=== PATIENT | male | born 1975 | race Caucasian/White ===

== ENCOUNTER 2024-01-19 16:49 | Emergency (ER) | payer OTHER ==
--- NOTE | 2024-01-19 17:07 | ED ---
Fall HPI - General Source: patient, RN notes reviewed <Yeimy Sterling - Last Filed: 01/19/24 17:06> - General Source: patient, RN notes reviewed - History of Present Illness MD Complaint: fall -: minutes(s) Fall From: standing When Fall Occurred: 1 hour [employer] Fall Witnessed: no Place Fall Occurred: home Loss of Consciousness: none Prolonged Down Time?: no Symptoms Prior to Fall: none Location - Extremities: Right: Knee Severity scale (1-10): 10 Quality: stabbing Context: tripped/slipped Associated Symptoms: denies <Anson Hankins - Last Filed: 01/25/24 05:33> - General Stated Complaint: R leg injury Time Seen by Provider: 01/19/24 17:05 - History of Present Illness Initial Comments: Quick Note- this is a 48-year-old male presents emergency department complaint of a fall. Patient states he was in a cooler, slipped on fell injuring his right knee and hip. Patient denies hitting his head or loss of consciousness at time of fall. Denies blood thinner use. (Yeimy Sterling) This is a 48-year-old male with a significant fall in a cooler tripping on a patch of ice allegedly, patient has severe right knee pain (Anson Hankins) - Related Data Allergies Allergy/AdvReac Type Severity Reaction Status Date / Time No Known Allergies Allergy Verified 01/19/24 17:15 Review of Systems ROS Other: All systems not noted in ROS Statement are negative. <Yeimy Sterling - Last Filed: 01/19/24 17:06> ROS Other: All systems not noted in ROS Statement are negative. <Anson Hankins - Last Filed: 01/25/24 05:33> ROS Statement: Those systems with pertinent positive or pertinent negative responses have been documented in the HPI. General Exam <Yeimy Sterling - Last Filed: 01/19/24 17:06> General appearance: alert, in no apparent distress Head exam: Present: atraumatic, normocephalic, normal inspection Eye exam: Present: normal appearance, PERRL, EOMI. Absent: scleral icterus, conjunctival injection, periorbital swelling ENT exam: Present: normal exam, mucous membranes moist Neck exam: Present: normal inspection. Absent: tenderness, meningismus, lymphadenopathy Respiratory exam: Present: normal lung sounds bilaterally. Absent: respiratory distress, wheezes, rales, rhonchi, stridor Cardiovascular Exam: Present: regular rate, normal rhythm, normal heart sounds. Absent: systolic murmur, diastolic murmur, rubs, gallop, clicks GI/Abdominal exam: Present: soft, normal bowel sounds. Absent: distended, tenderness, guarding, rebound, rigid Extremities exam: Present: normal inspection, full ROM, normal capillary refill. Absent: tenderness, pedal edema, joint swelling, calf tenderness Back exam: Present: normal inspection Neurological exam: Present: alert, oriented X3, CN II-XII intact Psychiatric exam: Present: normal affect, normal mood Skin exam: Present: warm, dry, intact, normal color. Absent: rash <Anson Hankins - Last Filed: 01/25/24 05:33> - General Exam Comments Initial Comments: Visual Physical Exam Vital signs reviewed General: Well-appearing, nontoxic, no acute distress. Head: Normocephalic, atraumatic Eyes: PERRLA, EOMI ENT: Airway patent Chest: Nonlabored breathing Skin: No visual rash, normal skin tone Neuro: Alert and oriented 3 Musculoskeletal: No gross abnormalities (Stieler,Yeimy) Course <Anson Hankins - Last Filed: 01/25/24 05:33> Vital Signs 01/19/24 01/19/24 01/19/24 17:10 22:19 23:00 Temperature 98.0 F 97.9 F 98.2 F Pulse Rate 18 L 79 81 Respiratory 18 18 18 Rate Blood Pressure 121/85 124/82 140/84 O2 Sat by Pulse 98 98 98 Oximetry - Reevaluation(s) Reevaluation #1: 01/19/24 22:04 Medical records reviewed (Anson Hankins) Reevaluation #2: 01/19/24 22:04 Patient has severely difficult to control pain here in the ER (Surya Hankins) Reevaluation #3: 01/19/24 22:04 Patient is informed of results and questions answered (Anson Hankins) Reevaluation #4: Was pt. sent in by a medical professional or institution (KRISTIAN Owusu, CONVENTION WORKER, urgent care, hospital, or senior care...) When possible be specific @ -no Did you speak to anyone other than the patient for history (EMS, parent, family, police, friend...)? What history was obtained from this source @ -no Did you review nursing and triage notes (agree or disagree)? Why? @ -agree Are old charts reviewed (outside hosp., previous admission, EMS record, old EKG, old radiological studies, urgent care reports/EKG's, senior care records)? Report findings @ -yes Differential Diagnosis (chest pain, altered mental status, abdominal pain women, abdominal pain men, vaginal bleeding, weakness, fever, dyspnea, syncope, headache, dizziness, GI bleed, back pain, seizure, CVA, palpatations, mental health, musculoskeletal)? @ -prior EKG interpreted by me (3pts min.). @ -yes X-rays interpreted by me (1pt min.). @ -yes negative for acute disease CT interpreted by me (1pt min.). @ -Yes positive for acute disease U/S interpreted by me (1pt. min.). @ -no What testing was considered but not performed or refused? (CT, X-rays, U/S, labs)? Why? @ -none What meds were considered but not given or refused? Why? @ -none Did you discuss the management of the patient with other professionals (professionals i.e. KRISTIAN Owusu, CONVENTION WORKER, lab, RT, psych nurse, neonatal social worker, manager demand, teacher, flight communications officer, field nurse case manager)? Give summary @ -no Was smoking cessation discussed for >3mins.? @ -no Was critical care preformed (if so, how long)? @ -no Were there social determinants of health that impacted care today? How? (Homelessness, low income, unemployed, alcoholism, drug addiction, transportation, low edu. Level, literacy, decrease access to med. care, group home, rehab)? @ -none Was there de-escalation of care discussed even if they declined (Discuss DNR or withdrawal of care, Hospice)? DNR status @ -no What co-morbidities impacted this encounter? (DM, HTN, Smoking, COPD, CAD, Cancer, CVA, ARF, Chemo, Hep., AIDS, mental health diagnosis, sleep apnea, morbid obesity)? @ -none Was patient admitted / discharged? Hospital course, mention meds given and route, prescriptions, significant lab abnormalities, going to OR and other pertinent info. @ -48 male to ER for evaluation of trip and fall trip and fall with severe knee pain right knee fracture will place in knee immobilizer and patient can be transferred to [facility] for surgical evaluation Transferred to [facility] Undiagnosed new problem with uncertain prognosis? @ -no Drug Therapy requiring intensive monitoring for toxicity (Heparin, Nitro, Insulin, Cardizem)? @ -no Were any procedures done? @ -no Diagnosis/symptom? @ -Right knee fracture Acute, or Chronic, or Acute on Chronic? @ -Acute Uncomplicated (without systemic symptoms) or Complicated (systemic symptoms)? @ -Complicated Side effects of treatment? @ -no Exacerbation, Progression, or Severe Exacerbation? @ -exacerbation Poses a threat to life or bodily function? How? (Chest pain, USA, ME, pneumonia, PE, COPD, DKA, ARF, appy, cholecystitis, CVA, Diverticulitis, Homicidal, Suicidal, threat to staff... and all critical care pts) @ -yes significant traumatic injury with knee fracture (Anson Hankins) - Consultations Consultation #1: Spoke with orthopedics at this [facility] who do want this patient transferred to outside facility patient (Anson Hankins) Consultation #2: spoke with [facility] who accept the patient as a trauma transfer (Anson Hankins) Procedures - Orthopedic Fracture Reduction Fracture #1 Consent Obtained: verbal consent Side: right Fracture Reduction Location: femur, tibia, fibula Technique: direct manipulation Post Reduction X-rays Demonstrate: acceptable reduction Post-Reduction Neuro Exam: intact Post-Reduction Vascular Exam: intact Splint Applied: Yes Patient Tolerated Procedure: well <Anson Hankins - Last Filed: 01/25/24 05:33> Medical Decision Making <Yeimy Sterling - Last Filed: 01/19/24 17:06> - Lab Data Result diagrams: 01/19/24 21:59 01/19/24 21:59 - Radiology Data Radiology results: report reviewed (X-ray right hip femur tibia-fibula negative for traumatic injury x-ray right knee, CT scan right knee positive for fract ure), image reviewed <Anson Hankins - Last Filed: 01/25/24 05:33> - Medical Decision Making I completed the quick note portion of this chart signed Yeimy Sterling PA-C (Yeimy Sterling) 8 male with a fall and severe right knee pain. Patient has significant knee effusion with right lateral femoral condyle fracture fragments in the joint space. Patient was transferred for inpatient evaluation and treatment (Anson Hankins) - Lab Data Lab Results 01/19/24 01/19/24 01/19/24 Range/Units 21:59 21:59 21:59 WBC 9.5 (3.8-10.6) k/uL RBC 4.33 (4.30-5.90) m/uL Hgb 13.6 (13.0-17.5) gm/dL Hct 40.7 (39.0-53.0) % MCV 94.0 (80.0-100.0) fL MCH 31.5 (25.0-35.0) pg MCHC 33.5 (31.0-37.0) g/dL RDW 12.6 (11.5-15.5) % Plt Count 221 (150-450) k/uL MPV 7.5 Neutrophils % 82 % Lymphocytes % 10 % Monocytes % 6 % Eosinophils % 1 % Basophils % 0 % Neutrophils # 7.8 H (1.3-7.7) k/uL Lymphocytes # 1.0 (1.0-4.8) k/uL Monocytes # 0.6 (0-1.0) k/uL Eosinophils # 0.1 (0-0.7) k/uL Basophils # 0.0 (0-0.2) k/uL PT 10.6 (10.0-12.5) sec INR 1.0 (<1.2) APTT 25.5 (22.0-30.0) sec Sodium 134 L (137-145) mmol/L Potassium 4.0 (3.5-5.1) mmol/L Chloride 108 H (98-107) mmol/L Carbon Dioxide 21 L (22-30) mmol/L Anion Gap 5 mmol/L BUN 14 (9-20) mg/dL Creatinine 0.72 (0.66-1.25) mg/dL Est GFR (CKD-EPI)AfAm >90 (>60 ml/min/1.73 sqM) Est GFR (CKD-EPI)NonAf >90 (>60 ml/min/1.73 sqM) Glucose 106 H (74-99) mg/dL Calcium 9.2 (8.4-10.2) mg/dL Phosphorus 2.8 (2.5-4.5) mg/dL Magnesium 1.8 (1.6-2.3) mg/dL Total Bilirubin 0.6 (0.2-1.3) mg/dL AST 26 (17-59) U/L ALT 28 (4-49) U/L Alkaline Phosphatase 67 (38-126) U/L Total Protein 6.9 (6.3-8.2) g/dL Albumin 4.4 (3.5-5.0) g/dL Disposition <Yeimy Sterling - Last Filed: 01/19/24 17:06> Is patient prescribed a controlled substance at d/c from ED?: No - Out of Hospital Transfer - Req. Specs Out of Hospital Transfer - Requested Specifics: Other Emergency Center ([facility]) <Anson Hankins - Last Filed: 01/25/24 05:33> Clinical Impression: Contusion of knee, Fall, Knee pain, Right femoral fracture, Effusion, right knee Disposition: OTHER INSTITUTION NOT DEFINED Condition: Serious Referrals: Nonstaff,Physician [REFERRING] - 1-2 days
[2024-01-19 17:15] VITALS: RESP 18
--- NOTE | 2024-01-19 19:11 | XR ---
EXAMINATION TYPE: XR tibia fibula RT DATE OF EXAM: 01/19/2024 5:48 PM CLINICAL INDICATION:Male, 48 years old with history of fall, injury, pringle; [facility] COMPARISON: None TECHNIQUE: XR tibia fibula RT; tibia/fibula was examined in AP and lateral projections. FINDINGS: No evidence of any acute osseous pathology, joint dislocation, or soft tissue swelling is n oted. Fixation hardware in the distal tibia appears intact. A fabella is present. IMPRESSION: 1. No evidence of acute fracture. 2. Fixation hardware in the distal tibia appears intact.
--- NOTE | 2024-01-19 19:12 | XR ---
EXAMINATION TYPE: XR foot complete RT DATE OF EXAM: 01/19/2024 5:48 PM CLINICAL INDICATION:Male, 48 years old with history of fall, injury, pringle; [facility] COMPARISON: None TECHNIQUE: XR foot complete RT examined in the AP, oblique, and lateral projections. FINDINGS: No evidence of any acute osseous pathology. No evidence of soft tissue swelling. Multifocal degenera tion changes throughout the joints of the foot with osteophyte formation and joint space narrowing. F ixation hardware in the distal tibia appears intact IMPRESSION: 1. No evidence of acute fracture. 2. Mild degeneration changes throughout the joints of the foot.
--- NOTE | 2024-01-19 19:19 | XR ---
EXAMINATION TYPE: XR femur RT DATE OF EXAM: 01/19/2024 COMPARISON: None HISTORY: Fall injury pain TECHNIQUE: 2 view right femur FINDINGS: No acute fracture or dislocation evident. Femoral head articulates with the acetabulum. Sma ll joint effusion at the knee appears to be present. IMPRESSION: 1. No acute osseous abnormality right femur. Follow-up can be performed 7-10 days from acute trauma for continued pain. 2. Suprapatellar joint effusion.
--- NOTE | 2024-01-19 19:20 | XR ---
EXAMINATION TYPE: XR Hip RT and AP Pelvis DATE OF EXAM: 01/19/2024 COMPARISON: None HISTORY: Pain, injury, fall TECHNIQUE: AP pelvis with 2 views right hip FINDINGS: No acute fracture or dislocation evident. Joint space at the right hip is preserved. Left f emoral head articulates with the acetabulum. Symphysis pubis and sacroiliac joints are normal IMPRESSION: 1. No acute osseous abnormality right hip
[2024-01-19] MEDS: ACETAMINOPHEN TAB 500 MG TAB PO STA (20:57)
[2024-01-19] MEDS: IBUPROFEN 800 MG TAB PO STA (20:58)
[2024-01-19] MEDS: HYDROmorphone 1 MG/ML 1 ML SYRINGE IM STA (20:59)
--- NOTE | 2024-01-19 21:10 | CT ---
EXAMINATION TYPE: CT knee RT wo con CT DLP: 146.2 mGycm, Automated exposure control for dose reduction was used. DATE OF EXAM: 01/19/2024 8:46 PM COMPARISON: Same day CT plain film CLINICAL INDICATION:Male, 48 years old with history of pain; [facility], Pt arrives with c/o slip and fall w ith right knee pain. TECHNIQUE: Axial images were obtained of the CT knee RT wo con, Additional coronal and sagittal refor matted images and soft tissue and bone window were obtained for review. 3-D reconstruction was create d on a separate workstation. Contrast used: mL of , (None if empty) Oral contrast used: (None if empty) FINDINGS: Acute fracture of the distal lateral femur anteriorly with mild step-off and displacement. More anteriorly and distally there is cortical buckling series 202 image 19. Multiple bony fragments are seen in the joint space series 202 image 27 possibly displacement of this fracture. a a complex j oint effusion with layering fluid fluid level likely representing blood products and cerebrum a No fractures are visualized of the tibial plateau or the fibula. Bony fragments in the fibular head thought to be possibly degenerative in etiology as there is no don or site. The patella is intact. There is diffuse soft tissue swelling around the knee. IMPRESSION Acute fracture of the distal lateral femoral condyle with large complex joint effusion (seroma/hemart hrosis) and at least 2 fracture fragments displaced into the joint near the intercondylar eminence.
[2024-01-19] MEDS: SODIUM CHLORIDE 0.9% 1,000 ML IV STA ×2 (22:13→22:15)
[2024-01-19 22:21] LABS: Basophils % (A) 0 %; Eosinophils # (A) 0.1 k/uL (0-0.7); Eosinophils % (A) 1 %; HCT 40.7 % (39.0-53.0); HGB 13.6 gm/dL (13.0-17.5); Lymphocytes % (A) 10 %; MCH 31.5 pg (25.0-35.0); MCHC 33.5 g/dL (31.0-37.0); Mean Platelet Volume 7.5; Monocytes # (A) 0.6 k/uL (0-1.0); Monocytes % (A) 6 %; Neutrophils # (A) 7.8 k/uL (1.3-7.7); Neutrophils % (A) 82 %; Platelet Count 221 k/uL (150-450); RBC 4.33 m/uL (4.30-5.90); RDW 12.6 % (11.5-15.5); WBC 9.5 k/uL (3.8-10.6)
[2024-01-19] MEDS: MORPHINE SULFATE 4 MG/ML SYRINGE IV STA (22:21)
[2024-01-19] MEDS: ONDANSETRON 4 MG/2 ML VIAL IVP STA (22:22)
[2024-01-19 22:38] LABS: Partial Thromboplastin Time 25.5 sec (22.0-30.0); Prothrombin Time 10.6 sec (10.0-12.5)
[2024-01-19 23:28] VITALS: BP 140/84; PULSE 81; TEMP 98.2
[2024-01-19 23:34] LABS: ALT 28 U/L (4-49); AST 26 U/L (17-59); African American GFR (CKD) >90 (>60 ml/min/1.73 sqM); Albumin 4.4 g/dL (3.5-5.0); Alkaline Phosphatase 67 U/L (38-126); Anion Gap 5 mmol/L; Blood Urea Nitrogen 14 mg/dL (9-20); Calcium 9.2 mg/dL (8.4-10.2); Carbon Dioxide 21 mmol/L (22-30); Chloride 108 mmol/L (98-107); Glucose 106 mg/dL (74-99); Magnesium 1.8 mg/dL (1.6-2.3); Non-African American GFR(CKD) >90 (>60 ml/min/1.73 sqM); Phosphorus 2.8 mg/dL (2.5-4.5); Sodium 134 mmol/L (137-145); Total Bilirubin 0.6 mg/dL (0.2-1.3); Total Protein 6.9 g/dL (6.3-8.2)
== END 2024-01-19 23:34 | disposition other institution (70) ==
LOC: EC 16:49
DX: S72.421A Displaced fracture of lateral condyle of right femur, initial encounter for closed fracture (principal); W01.0XXA Fall on same level from slipping, tripping and stumbling without subsequent striking against object, initial encounter; Y92.009 Unspecified place in unspecified non-institutional (private) residence as the place of occurrence of the external cause
CPT/HCPCS: 99285; 27752; 96374; 96375; 96361; 96372; 36415; 80053; 83735; 84100; 85025; 85610; 85730; 73502; 73552; 73590; 73630; 73700; J2270; J2405; J1170